=== PATIENT | female | born 1970 | race Caucasian/White ===

== ENCOUNTER 2020-08-10 10:10 | Outpatient (CLI) | payer BC, SELFPAY ==
--- NOTE | ~2020-08-10 | US_ITS ---
EXAMINATION: US FNA w image guidance, US FNA additional DATE: 08/10/2020 11:44 INDICATION: Multinodular goiter. TECHNIQUE: The procedure and its benefits and risks were discussed with the patient. Risks specifically discusse d included bleeding. The patient verbalized understanding of the risks and agreed to proceed. The nec k was prepped and draped in the usual sterile manner. 1% lidocaine was used for local anesthesia. F ganga passes were made with a 25G needle into the lesion in superior lateral right thyroid lobe under u ltrasound guidance. Five passes were made with a 25G needle into the lesion in inferior right thyroid lobe under ultrasou nd guidance. There were no immediate complications. FINDINGS: Grayscale ultrasound images demonstrate needles advanced into a 2.7 cm nodule in superior lateral rig ht thyroid lobe for biopsy. Grayscale ultrasound images demonstrate needles advanced into a 4.5 cm no dule in inferior right thyroid lobe for biopsy. IMPRESSION: 1. Ultrasound-guided fine needle aspiration of a 2.7 cm nodule in superior lateral right thyroid lob e. 2. Ultrasound-guided fine needle aspiration of a 4.5 cm nodule in inferior right thyroid lobe. Reviewed, dictated and finalized at location A. IMPRESSION: 1. Ultrasound-guided fine needle aspiration of a 2.7 cm nodule in superior lat eral right thyroid lobe. 2. Ultrasound-guided fine needle aspiration of a 4.5 cm nodule in inferior rig ht thyroid lobe.
== END 2020-08-10 10:11 | disposition home or self-care (01) ==
LOC: ANHIMG 10:18
PROVIDERS: Visit Provider Internal Medicine Endocrinology, Diabetes & Metabolism
DX: E04.2 Nontoxic multinodular goiter (principal)
CPT/HCPCS: 10005; 10006; 88173; 88305

== ENCOUNTER 2021-05-04 11:15 | Outpatient (CLI) | payer BC, SELFPAY ==
[2021-05-04 12:50] LABS: Free T4 Free Thyroxine 1.05 ng/mL (0.78-2.19)
[2021-05-04 13:02] LABS: Thyroid Stimulating Hormone 0.116 uIU/mL (0.465-4.680)
[2021-05-07 07:18] LABS: Triiodothyronine T3 Free 3.2 pg/mL (2.3-4.2)
== END 2021-05-04 11:16 | disposition home or self-care (01) ==
LOC: ANHWCLAB 11:17
PROVIDERS: Referring Provider Internal Medicine Endocrinology, Diabetes & Metabolism; Visit Provider Internal Medicine Endocrinology, Diabetes & Metabolism
DX: E04.1 Nontoxic single thyroid nodule (principal)
CPT/HCPCS: 36415; 84439; 84443; 84481

== ENCOUNTER 2021-05-11 09:06 | Outpatient (CLI) | payer BC, SELFPAY ==
--- NOTE | ~2021-05-11 | US_ITS ---
EXAMINATION: US thyroid DATE: 05/11/2021 09:45 INDICATION: Multiple thyroid nodules TECHNIQUE: Multiple ultrasound images of the thyroid were obtained. COMPARISON: 12/24/2018 and 08/10/2020 FINDINGS: The left thyroid lobe has been reportedly resected with no residual thyroid tissue identified at the left thyroid fossa. The right thyroid lobe measures 5.4 x 2.5 x 2.1 occlusive of and incompletely vis ualized large nodule arising from the lower pole with more complete visualization of the time of the prior biopsy measuring 4.5 cm in maximal diameter. There are a few additional smaller solid isoechoic nodules in the right thyroid lobe. The next 2 largest nodules measure 2.2 cm at the superior right t hyroid and 2.1 cm the mid to inferior right thyroid. All are solid, hypoechoic with smooth or ill-def ined margins and wider than tall (TI-RADS 4, moderately suspicious , FNA if >=1.5 cm, annual followup is >=1 cm). Both the largest inferior nodule in the 2.2 cm nodule at the superior right thyroid were biopsied approximately 9 months prior with pathology from both nodules read as consistent with abdirahman gn follicular nodule. IMPRESSION: 1. Status post left thyroidectomy with no significant change accounting for differences in a multinod ular right thyroid lobe although the largest nodule at the lower pole is only incompletely visualized . Reviewed, dictated and finalized at location A. ONAL FITNESS MANAGER IMPRESSION: 1. Status post left thyroidectomy with no significant change accounting for dif ferences in a multinodular right thyroid lobe although the largest nodule at th e lower pole is only incompletely visualized.
== END 2021-05-11 09:07 | disposition home or self-care (01) ==
PROVIDERS: Visit Provider Internal Medicine Endocrinology, Diabetes & Metabolism
DX: E04.1 Nontoxic single thyroid nodule (principal)
CPT/HCPCS: 76536

== ENCOUNTER 2022-05-17 11:03 | Outpatient (CLI) | payer BC, SELFPAY ==
[2022-05-17 17:58] LABS: Anion Gap 7 mmol/L (8-16); Blood Urea Nitrogen 12 mg/dL (7-17); Calcium 8.8 mg/dL (8.4-10.2); Carbon Dioxide 24 mmol/L (22-30); Chloride 108 mmol/L (98-107); Estimated Glomerular Filt Rate > 60; Glucose 103 mg/dL (65-110); Potassium 4.1 mmol/L (3.4-5.0); Sodium 139 mmol/L (137-145)
[2022-05-17 18:31] LABS: Thyroid Stimulating Hormone 0.853 uIU/mL (0.465-4.680)
[2022-05-17 19:55] LABS: Free T4 Free Thyroxine 1.05 ng/mL (0.78-2.19)
[2022-05-20 05:19] LABS: Thyroid Peroxidase Antibodies 3 IU/mL (<9)
== END 2022-05-17 11:04 | disposition home or self-care (01) ==
LOC: ANHWCLAB 11:05
PROVIDERS: PCP Otolaryngology; Visit Provider Internal Medicine Endocrinology, Diabetes & Metabolism
DX: E04.9 Nontoxic goiter, unspecified (principal); R79.89 Other specified abnormal findings of blood chemistry
CPT/HCPCS: 36415; 80048; 84439; 84443; 86376

== ENCOUNTER 2022-05-28 08:22 | Outpatient (CLI) | payer BC, SELFPAY ==
--- NOTE | ~2022-05-28 | US_ITS ---
EXAMINATION: US thyroid DATE: 05/28/2022 09:49 INDICATION: Nontoxic single thyroid nodule. TECHNIQUE: Multiple ultrasound images of the thyroid were obtained. COMPARISON: Ultrasound 05/11/2021 FINDINGS: The right thyroid lobe measures 6.7 x 3.1 x 3.2 cm. The left thyroid lobe is absent. There are nodul es of similar ultrasound appearance throughout the thyroid without normal intervening parenchyma. Bio psy of 2 right thyroid nodules on 08/10/2020 was benign. In inferior right thyroid lobe, there is a 4. 9 cm solid, hypoechoic, wider than tall nodule with ill-defined margin without echogenic foci (TI-RAD S TR4). IMPRESSION: 1. Multinodular goiter. A nodule in inferior right thyroid lobe was biopsied today. Reviewed, dictated and finalized at location A. EMAKER IMPRESSION: 1. Multinodular goiter. A nodule in inferior right thyroid lobe was biopsied to day.
--- NOTE | ~2022-05-28 | US_ITS ---
EXAMINATION: US FNA w image guidance DATE: 05/28/2022 09:53 INDICATION: 4.5 cm nodule in the inferior right thyroid TECHNIQUE: A time-out was performed to verify the patient's name, date of , and procedure to be performed . The procedure and its benefits and risks were discussed with the patient. Risks specifically discus sed included bleeding and infection. The patient understood the risks and agreed to proceed. The neck was prepped and draped in the usual sterile manner. 3 mL 1% lidocaine was used for local anesthesia . 6 passes were made with a 25G needle into the lesion. Appropriate needle location was documented with continuous sonographic guidance. A sterile bandage was applied. There were no immediate compli cations. FINDINGS: Grayscale ultrasound images demonstrate biopsy needles advanced into a 4.6 cm solid TI RADS 4 nodule at the inferior right thyroid. IMPRESSION: 1. Successful ultrasound-guided fine needle aspiration of a 4.6 cm TI RADS 4 nodule at the inferior right thyroid. Reviewed, dictated and finalized at location A. OR DIRECTOR IMPRESSION: 1. Successful ultrasound-guided fine needle aspiration of a 4.6 cm TI RADS 4 n odule at the inferior right thyroid.
== END 2022-05-28 08:23 | disposition home or self-care (01) ==
PROVIDERS: Visit Provider Internal Medicine Endocrinology, Diabetes & Metabolism
DX: E04.1 Nontoxic single thyroid nodule (principal)
CPT/HCPCS: 10005; 76536; 88173; 88305; 88342

== ENCOUNTER → 2023-03-28 08:31 | Outpatient (CLI) | payer BC, SELFPAY ==
--- NOTE | ~2023-03-28 | US_ITS ---
EXAMINATION: US thyroid DATE: 03/28/2023 08:57 INDICATION: Nontoxic single thyroid nodule TECHNIQUE: Multiple ultrasound images of the thyroid were obtained. COMPARISON: 05/28/2022 FINDINGS: The left thyroid lobe is surgically absent. The right thyroid lobe measures 5.7 x 2.4 x 2.8 cm. Exclu sive of the recently biopsied 4.9 cm nodule arising from the inferior right thyroid with intrathoraci c extension which is not clearly visualized on the provided images. Heterogeneous echogenicity with c oarsened echotexture and increased vascular flow on color Doppler throughout the right thyroid lobe. There are couple solid isoechoic 3 left nodules which are both wider than tall with ill-defined yanick ns measuring 1.4 cm and 2.1 cm in maximal diameters (TI-RADS 3, mildly suspicious , FNA if >=2.5 cm, annual followup is >=1.5 cm). There also couple additional solid hypoechoic nodules which are wider t larson tall with smooth margins and without echogenic foci (TI-RADS 4, moderately suspicious , FNA if >= 1.5 cm, annual followup is >=1 cm), each measuring 1.2 cm along the remaining thyroid isthmus. IMPRESSION: 1. Status post left thyroidectomy with stable appearance of a multinodular goiter in the remaining ri ght thyroid lobe and isthmus. The largest inferior nodule with prior benign biopsy on 05/28/2022 is onl y incompletely visualized due to intrathoracic extension. Reviewed, dictated and finalized at location A. E MACHINE OPERATOR IMPRESSION: 1. Status post left thyroidectomy with stable appearance of a multinodular goit er in the remaining right thyroid lobe and isthmus. The largest inferior nodule with prior benign biopsy on 05/28/2022 is only incompletely visualized due to in trathoracic extension.
== END ==
PROVIDERS: PCP Internal Medicine Endocrinology, Diabetes & Metabolism; Visit Provider Internal Medicine Endocrinology, Diabetes & Metabolism
DX: E04.1 Nontoxic single thyroid nodule (principal)
CPT/HCPCS: 76536

== ENCOUNTER 2024-09-09 07:39 | Outpatient (CLI) | payer BC, SELFPAY ==
--- NOTE | ~2024-09-09 | CT_ITS ---
CT soft tissue neck w con Ordering provider: Ciarra Kohli MD History: 53 years Female with . eval tracheal compression due to substernal goiter . Comparison: None. Technique: CT soft tissues neck was performed with contrast. . Automated exposure control and iterat ganga reconstruction technique were employed. The dose-length product was 555.92 mGy-cm. 75 mL Omnipaqu e 350 was given IV. Findings: LOWER HEAD: The visualized brain parenchyma, optic globes/orbits and mastoids are normal. The visua lized paranasal sinuses are well aerated. SALIVARY GLANDS: Normal. THYROID: Enlarged right lobe of the thyroid with retrosternal extension which measures 5.3x 5.8x 7.2 cm. Another component is seen above the retrosternal portion measuring 3.3 x 5.5 x 4.5 cm..Further e valuation advised. SUPRAHYOID DEEP SPACES: Normal. CAROTID ARTERIES: Normal. JUGULAR VEINS: Normal. TONSILS: Normal. ORAL CAVITY: Partially obscured by dental amalgam but normal as visualized. PHARYNX, LARYNX AND TRACHEA: Patent and normal. No prevertebral soft tissue swelling. Minimal compression on the trachea is seen anteriorly. SUPERFICIAL SOFT TISSUES: Normal. No lymphadenopathy or neck mass. THORACIC INLET/VISUALIZED UPPER CHEST: Normal. SKELETAL: Normal. IMPRESSION: Enlarged right thyroid nodules with retrosternal extension. Minimal tracheal compression anteriorly. Reviewed, dictated and finalized at location A. IMPRESSION: Enlarged right thyroid nodules with retrosternal extension. Minimal tracheal co mpression anteriorly.
--- NOTE | ~2024-09-09 | US_ITS ---
EXAMINATION: US thyroid DATE: 09/09/2024 08:32 INDICATION: Post left-sided thyroidectomy. Nontoxic goiter TECHNIQUE: Multiple ultrasound images of the thyroid were obtained. COMPARISON: 03/28/2023 and dating back to 05/11/2021 FINDINGS: The right thyroid lobe measures 6.2 x 3.3 x 4.0 cm., The caudal-most extent is poorly visualized seco ndary to intrathoracic extension. Within the upper pole of the right lobe of the thyroid gland is a 14 x 11 x 16 mm nodule: Composition - spongiform Echogenicity -hyperechoic and isoechoic (1) Shape - wider than tall Margin - smooth Echogenic foci - none. = TR 1, benign Within the mid pole of the right lobe of the thyroid gland is a 11 x 8 x 8 mm nodule: Composition - spongiform Echogenicity -hyperechoic and isoechoic (1) Shape - wider than tall Margin - smooth Echogenic foci - none. = TR 1, benign Within the lower pole of the right lobe of the thyroid gland is a 23 x 16 x 20 mm nodule: Composition - spongiform Echogenicity -hyperechoic and isoechoic (1) Shape - wider than tall Margin -poorly defined Echogenic foci - none. = TR 1, benign. The left thyroid lobe is surgically absent. No sonographic abnormality is identified within the thyroid bed. The isthmus measures 1.3cm in anterior to posterior dimension. There is otherwise heterogeneous echotexture and echogenicity throughout the remainder of the thyroid gland. No additional discrete nodules identified. Increased vascular flow is present. IMPRESSION: TR 1 nodules within the remaining right lobe of the thyroid gland. Heterogeneous, hypervascular thyroid, consistent with Graves' disease versus chronic lymphocytic thyr oiditis (Shila's disease). Reviewed, dictated and finalized at location A. IMPRESSION: TR 1 nodules within the remaining right lobe of the thyroid gland. Heterogeneous, hypervascular thyroid, consistent with Graves' disease versus ch ronic lymphocytic thyroiditis (Shila's disease).
--- OUTSIDE RECORDS SUMMARY | 2024-09-09 07:43 | XMS_ITS | Clinical Summary ---
Author Organization [address] Address [address] [place] [phone] Care Team Providers Care Information Technology Consultant Name Role Phone Tricia Randle Primary Care Provider + Allergies Active Allergy Reactions Criticality Noted Date Comments Egg Unknown 09/22/2013 Other Diarrhea,Nausea And Vomiting,Hives,Rash Medium 11/06/2011 Gain Laundry detergent Shellfish Containing Products Unknown 11/03/2020 Tetrahydrozoline-Zinc Unknown 10/12/2003 Medications escitalopram (LEXAPRO) 20 mg tablet TAKE 1 TABLET BY MOUTH ONCE DAILY (GENERIC FOR LEXAPRO) 06/26/2018 Active biotin 5 mg capsule Take by mouth 11/03/2015 Active cholecalciferol (VITAMIN D-3) 67547 unit tablet Take by mouth 05/10/2015 Active cyanocobalamin (Vitamin B-12) 1,000 mcg tablet Take by mouth daily 12/28/2016 Active turmeric root extract 500 mg capsule Take by mouth Active Active Problems Problem Noted Date Diagnosed Date MONIQUE (obstructive sleep apnea) 11/03/2020 Assessment & Plan (11/03/2020 9:59 AM CDT): Due to the patient stating that her CPAP machine is currently malfunctioning, I have ordered the patient a new CPAP machine set at 5-20 cm water pressure with heated humidity and a full set of supplies. I have also ordered the patient a loaner CPAP machine set at 5-20 cm water pressure while her machine either getting replaced or repaired. The patient states that she does have access to another CPAP machine and will need that one cleaned and calibrated to her current pressure settings if she is not eligible. [facility] company provider Plus. The patient is benefitting from CPAP therapy. Surgical History Surgery Date Site/Laterality Comments THYROIDECTOMY, PARTIAL Medical History Medical History Date Comments Sleep apnea, obstructive Family History Medical History Relation Name Comments Diabetes Father Heart disease Father No Known Problems Mother Relation Name Status Comments Father Alive Mother Alive Social History Tobacco Use Types Packs/Day Years Used Date Smoking Tobacco: Former Smokeless Tobacco: Never Personal Safety Answer Date Recorded Getting School Help Needed Not on file 06/08 Comments Unknown Sex and Gender Information Value Date Recorded Sex Assigned at Not on file 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 Gender Identity Not on file Sexual Orientation Not on file Obstetrics History Last Filed Vital Signs Vital Sign Reading Time Taken Comments Blood Pressure 118/78 11/03/2020 9:35 AM CDT Pulse 60 11/03/2020 9:35 AM CDT Temperature 36.2 C (97.2 F) 11/03/2020 9:35 AM CDT Respiratory Rate 18 11/03/2020 9:35 AM CDT Oxygen Saturation 98% 11/03/2020 9:35 AM CDT Inhaled Oxygen Concentration - - Weight 94.3 kg (208 lb) 11/03/2020 9:35 AM CDT Height 160 cm (5' 3) 11/03/2020 9:35 AM CDT Body Mass Index 36.85 11/03/2020 9:35 AM CDT Plan of Treatment Not on file Insurance CHOICE [facility] [place] Care Teams Information Technology Consultant Relationship Specialty Start Date End Date Tricia Randle PA [id number] [place] [address] PCP - General 11/05/19
--- OUTSIDE RECORDS SUMMARY | 2024-09-09 07:43 | XMS_ITS | Referral Summary ---
Author Organization [address] Address [address] [place] [phone] Care Team Providers Care Travel Clerk Name Role Phone Tricia Randle Primary Care [...] by mouth 11/03/2015 Active cholecalciferol (VITAMIN D-3) 96660 unit tablet Take by mouth 05/10/2015 Active [...] pressure settings if she is not eligible. [facility] company provider Plus. The patient is benefitting from CPAP therapy. 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
[2024-09-09 08:03] LABS: Estimated Glomerular Filt Rate > 60
[2024-09-09 09:57] LABS: Free T4 Free Thyroxine 1.06 ng/dL (0.78-2.19)
== END 2024-09-09 07:40 | disposition home or self-care (01) ==
PROVIDERS: PCP Internal Medicine Endocrinology, Diabetes & Metabolism; Visit Provider Internal Medicine Endocrinology, Diabetes & Metabolism
DX: E04.9 Nontoxic goiter, unspecified (principal)
CPT/HCPCS: 36415; 70491; 76536; 84439; 84443; Q9967